=== PATIENT | male | born 1950 | race Caucasian/White ===

== ENCOUNTER 2018-03-30 08:15 | Day surgery (SDC) | payer MEDICARE, BC ==
[~2018-03-30] VITALS: Ht 177.8 cm; Wt 68.0 kg
[~2018-03-30 08:15] MED LIST: ATOR-2 PO; EQUATE PO; FURO-151 PO; GABA-533 PO; GLIP5TAB12 PO; METF10004 PO; OXYC-105 PO; SITA25TA3 PO; TAMS0.4C31 PO; VIT1CAPS47 PO
[2018-03-30 08:56] LABS: BASOPHILS % 0.3 % (0.0-2.0); EOSINOPHILS % 1.4 % (0.0-5.0); HEMATOCRIT. 31.3 % (42.0-52.0); LYMPHOCYTES % 46.3 % (20.0-50.0); MEAN CORPUSCULAR VOLUME 84.2 fL (80.0-94.0); MEAN PLATELET VOLUME 8.4 fl (7.4-10.4); MONOCYTES % 3.5 % (2.0-8.0); NEUTROPHILS % 48.5 % (40.0-76.0); PLATELET 256 x1000/uL (130-400); RED BLOOD CELL COUNT 3.72 mill/uL (4.7-6.1); RED CELL DISTRIBUTION WIDTH 14.5 % (11.6-14.6)
[2018-03-30 09:06] LABS: INR 1.1; PROTHROMBIN TIME 10.6 sec (9.1-11.1)
[2018-03-30] MEDS ORDERED: PROPOFOL 200MG/20ML VIAL IV ONE (09:33)
[2018-03-30] MEDS ORDERED: LIDOCAINE HCL/PF 1% 10 MG/ML 5ML VIAL ONE (09:46)
[2018-03-30] MEDS ORDERED: CEFAZOLIN SODIUM 1000MG/VIAL ONE (10:13)
[2018-03-30] MEDS ORDERED: FENTANYL CITRATE/PF 50MCG/ML 2ML VIAL ONE (10:16)
[2018-03-30] MEDS ORDERED: ONDANSETRON HCL 4MG/2ML INJ ONE (10:16)
[2018-03-30] MEDS ORDERED: SKIN ADHESIVE 0.7 GM EA TOP ONE (10:29)
[2018-03-30] MEDS ORDERED: HEPARIN 5000 UNITS/ML VIAL ONE (11:18)
[2018-03-30] MEDS ORDERED: HEPARIN 1000 UNITS/ML 10ML ONE (12:00)
[2018-03-30] MEDS ORDERED: HYDROMORPHONE HCL/PF 2MG/ML CPJ IV PRN (12:30)
[2018-03-30] MEDS ORDERED: ONDANSETRON HCL 4MG/2ML INJ IV PRN (12:30)
== END 2018-03-30 14:05 | disposition home or self-care (01) ==
LOC: OR 08:15
PROVIDERS: ATTEND Surgery Vascular Surgery
DX: L97.509 Non-pressure chronic ulcer of other part of unspecified foot with unspecified severity (principal); I77.0 Arteriovenous fistula, acquired; E11.9 Type 2 diabetes mellitus without complications; E78.00 Pure hypercholesterolemia, unspecified; E03.9 Hypothyroidism, unspecified; Z79.01 Long term (current) use of anticoagulants; Z98.890 Other specified postprocedural states; Z79.899 Other long term (current) drug therapy
CPT/HCPCS: 35671; 36415; 71045; 80048; 82962; 85025; 85610; 85730; 93005; G0168; J0690; J1644; J2405; J3010; J3490; J7120; J2704